=== PATIENT | female | born 1975 | race Caucasian/White ===

== ENCOUNTER → 2020-05-20 | Outpatient (CLI) | payer OTHER | LOC: EXRD 11:30 | DX: M54.16 Radiculopathy, lumbar region (principal) | CPT/HCPCS: 72100 ==

== ENCOUNTER → 2020-06-10 | Outpatient (CLI) | payer OTHER | LOC: EXRD 10:53 | DX: M54.16 Radiculopathy, lumbar region (principal) | CPT/HCPCS: 72100 ==